=== PATIENT | male | born 1980 | race Caucasian/White ===

== ENCOUNTER → 2016-09-07 | Outpatient (CLI) | payer BC, OTHER ==
[~2016-09-07] MED LIST: OMEP40CA2 PO; OXYC1TAB23 PO
[2016-09-07 17:31] LABS: BASO % 0.4 % (0.0-1.0); EOS # 0.1 K/mm3 (0.0-0.50); EOS % 1.8 % (0.0-3.0); LARGE UNSTAINED CELL # 0.2 K/mm3 (0.0-0.4); LARGE UNSTAINED CELL % 2.2 % (0.0-4.0); LYMPH # 1.5 K/mm3 (1.5-4.5); LYMPH % 20.5 % (24.0-44.0); MEAN CORPUSCULAR HEMOGLOBIN 30.8 pg (27.0-33.0); MEAN CORPUSCULAR HGB CONC 33.8 g/dl (32.0-36.5); MEAN CORPUSCULAR VOLUME 91.2 fl (80.0-96.0); MONO # 0.4 K/mm3 (0.0-0.8); MONO % 4.9 % (0.0-5.0); NEUTROPHILS # 5.1 K/mm3 (1.8-7.7); NEUTROPHILS % 70.2 % (36.0-66.0); PLATELET COUNT, AUTOMATED 232 k/mm3 (150-450); RED CELL DISTRIBUTION WIDTH 12.5 % (11.5-14.5); WHITE BLOOD COUNT 7.2 K/mm3 (4.0-10.0)
--- NOTE | 2016-09-07 17:55 | REP ---
Chest four views; including PA and latera views and bilateral oblique views: There are no comparisons. The lung reyes are clear. The cardiac size is normal The aries, mediastinum, and bony thorax are unremarkable. Impression: Negative four view chest. Signed by Moshe Henriquez MD 09/07/2016 05:47 P
[2016-09-07 18:19] LABS: ALBUMIN/GLOBULIN RATIO 1.29 (1.00-1.93); ALKALINE PHOSPHATASE 91 U/L (45-117); ALT/SGPT 42 U/L (12-78); ANION GAP 8 MEQ/L (8-16); AST/SGOT 40 U/L (15-37); BILIRUBIN,TOTAL 0.5 MG/DL (0.2-1.0); BLOOD UREA NITROGEN 26 MG/DL (7-18); CALCIUM LEVEL 9.2 MG/DL (8.5-10.1); CARBON DIOXIDE LEVEL 29 MEQ/L (21-32); CHLORIDE LEVEL 103 MEQ/L (98-107); CREATININE FOR GFR 1.06 MG/DL (0.70-1.30); GLOMERULAR FILTRATION RATE > 60.0 (>60); GLUCOSE, FASTING 78 MG/DL (70-105); POTASSIUM SERUM 4.3 MEQ/L (3.5-5.1); SODIUM LEVEL 140 MEQ/L (136-145); TOTAL PROTEIN 7.1 GM/DL (6.4-8.2)
--- NOTE | 2016-09-08 20:30 | ECGEPIP ---
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
== END ==
LOC: M LAB 16:16
PROVIDERS: ATTEND Neurological Surgery
DX: Z01.818 Encounter for other preprocedural examination (principal); M54.5 Low back pain; M51.16 Intervertebral disc disorders with radiculopathy, lumbar region

== ENCOUNTER 2016-09-08 12:20 | Day surgery (SDC) | payer BC, OTHER ==
[~2016-09-08] VITALS: Ht 172.7 cm; Wt 84.0 kg
[2016-09-08] MEDS ORDERED: BACITRACIN PWD 50,000 UNITS VIAL As Ordered ONE (12:21)
[2016-09-08] MEDS ORDERED: THROMBIN SOLN 20,000 UNITS KIT As Ordered ONE (12:21)
[2016-09-08] MEDS ORDERED: dexameTHASONE 4 MG/ML 1ML VIAL (J1100) IV ONE (12:30)
[2016-09-08] MEDS ORDERED: CEFUROXIME SODIUM 1.5 GM in D5W MINI-BAG PLUS 50 ML IV ONE (12:30)
[2016-09-08] MEDS ORDERED: OMEP40CA2 PO (12:37)
[2016-09-08] MEDS ORDERED: dexameTHASONE 4 MG/ML 1ML VIAL (J1100) As Ordered ONE (14:15)
[2016-09-08] MEDS ORDERED: MIDAZOLAM INJ 2 MG/2 ML VIAL (J2250) As Ordered ONE (14:15)
[2016-09-08] MEDS ORDERED: fentaNYL 250 MCG/5 ML INJECTION (J3010) As Ordered ONE (14:15)
[2016-09-08] MEDS ORDERED: ROCURONIUM BROMIDE 50 MG/5 ML VIAL As Ordered ONE (14:15)
[2016-09-08] MEDS ORDERED: DESFLURANE 240 ML INHALANT As Ordered ONE (14:15)
[2016-09-08] MEDS ORDERED: METOCLOPRAMIDE INJ 10MG/2ML VIAL (J2765) As Ordered ONE (14:15)
[2016-09-08] MEDS ORDERED: ONDANSETRON 4MG/2ML VIAL (J2405) As Ordered ONE (14:15)
[2016-09-08] MEDS ORDERED: PROPOFOL 200 MG/20 ML VIAL As Ordered ONE (14:15)
[2016-09-08] MEDS ORDERED: GLYCOPYRROLATE INJ 0.2 MG/ML 2 ML VIAL As Ordered ONE (14:16)
[2016-09-08] MEDS ORDERED: NEOSTIGMINE 1MG/ML 5 ML SYRINGE (J2710) As Ordered ONE (14:16)
[2016-09-08] MEDS ORDERED: LIDOCAINE 2% INJ 100 MG/5 ML SDV (FOR ANES.) As Ordered ONE (14:16)
--- NOTE | 2016-09-08 15:37 | REP ---
PARTIAL LUMBAR SPINE, ONE VIEW: A single portable lateral radiograph was obtained. A metal probe is present overlying the neural arch at the L5-S1 level. Signed by Monico Paulson MD 09/08/2016 04:59 P
[2016-09-08] MEDS ORDERED: MORPHINE PCA 1MG/ML 100ML CADD As Ordered ONE (15:39)
[2016-09-08] MEDS ORDERED: PERCOCET 5MG/325MG TAB As Ordered ONE (15:40)
[2016-09-08] MEDS: PERCOCET 5MG/325MG TAB PO PRN ×2 (15:43→16:03)
[2016-09-08] MEDS ORDERED: NORCO, ANEXSIA 5/325MG TABLET (HYDROcodone/ACETAMINOPHEN) PO PRN (16:00)
[2016-09-08] MEDS ORDERED: fentaNYL 100 MCG/2 ML INJECTION (J3010) IV PRN (16:00)
[2016-09-08] MEDS ORDERED: NALOXONE INJ 0.4 MG/1 ML VIAL (J2310) IV PRN (16:00)
[2016-09-08] MEDS ORDERED: EPIDURAL/PCA KEYS XX PRN (16:00)
[2016-09-08] MEDS ORDERED: ONDANSETRON 4MG/2ML VIAL (J2405) IV PRN ×2 (16:00)
[2016-09-08] MEDS ORDERED: LR 1,000 ML IV SCH (16:00)
[2016-09-08] MEDS ORDERED: MORPHINE PCA 1MG/ML 100ML CADD IV PRN (16:00)
[2016-09-08] MEDS ORDERED: diphenhydrAMINE INJ 50MG/ML VIAL (J1200) IV PRN (16:00)
[2016-09-08] MEDS: KCL 20MEQ IN D5/0.45NS 1000ML 1,000 ML IV SCH (16:00)
[2016-09-08] MEDS ORDERED: ACETAMINOPHEN TAB 650MG DOSE (2X325MG) PO PRN (16:00)
[2016-09-08 16:45] VITALS: BP 112/49
[2016-09-08 17:15] VITALS: BP 120/60
[2016-09-08 18:15] VITALS: BP 114/53
[2016-09-08 19:15] VITALS: BP 114/55
[2016-09-08 20:15] VITALS: BP 116/60
[2016-09-08 22:00] VITALS: BP 114/56
[2016-09-09 02:00] VITALS: BP 112/53
[2016-09-09] MEDS: KCL 20MEQ IN D5/0.45NS 1000ML 1,000 ML IV SCH (02:00)
[2016-09-09 06:00] VITALS: BP 108/52
--- NOTE | 2016-09-09 06:40 | RO ---
DATE OF PROCEDURE: 09/08/2016 PREOPERATIVE DIAGNOSIS: Left S1 radiculopathy secondary to central L5-S1 disc herniation. POSTOPERATIVE DIAGNOSIS: Left S1 radiculopathy secondary to central L5-S1 disc herniation. PROCEDURE: Left L5-S1 laminectomy, discectomy. SURGEON: Jamal Park MD WHISTLE PUNK: ANESTHESIA: General endotracheal. CLINICAL NOTE: Patient is a 36-year-old male who was seen in the office with history of chronic low back pain with worsening over the previous couple of weeks following lifting heavy weights. An outpatient MRI was ordered, which compared to a previous study showed a large increase in the size of a know disc herniation at L5-S1. Patient was seen yesterday in followup and reported that he was much worse than when see previously. He had great difficulty just standing to walk and appeared to be in severe pain. Because of the severity of progressive worsening of his symptoms and appearance of the large disc herniation on a repeat MRI, it was decided to proceed with laminectomy and discectomy on an urgent basis. DESCRIPTION OF PROCEDURE: After satisfactory general endotracheal anesthesia established, the patient was positioned prone on the laminectomy frame. All pressure points carefully padded. Lumbosacral region thoroughly prepped, draped in a sterile fashion. A midline incision made from just above the spinous process of L5 to below spinous process of S1 and carried down to level of the fascia. Hemostasis obtained, and the lumbar fascia incised just to the left of midline and the paraspinal muscles dissected laterally. The L5-S1 level positively identified by palpation, inspection, compression and articulation. A probe was placed beneath what appeared to be the left L5 naomi lamina and a lateral lumbar x-ray obtained confirming that the probe was over the L5-S1 disc level. Ligamentum flavum was dissected from the undersurface of the left L5 naomi lamina and then using a high speed air drill, the inferior half of the left L5 lamina was thinned down and bony removal completed with 3 and 4 mm Kerrison rongeurs. The ligamentum flavum was mobilized from the dura and removed with 4 mm Kerrison rongeurs. The dura identified and gentle cottonoid dissection carried around the left lateral aspect of the dura until the exiting S1 nerve root was found to be tethered and non-mobile due to an underlying and medially placed presumed disc herniation. The nerve root and lateral edge of the dura did not allow any significant retraction medially due to the underlying mass. Therefore, dissection was undertaken in the axilla of the left S1 nerve root. Several small epidural vessels were coagulated and divided. dissection with small cottonoid and blunt nerve hook disclosed the presence of disc fragments medially and ventrally. This was gradually mobilized with a blunt nerve hook and small pituitary rongeurs. A single large piece free fragment herniation was retrieved and found to have attached cartilaginous endplate. This was removed. There was immediate relaxation of the dura and S1 nerve root and further inspection in the axilla dissection with a small blunt nerve hook disclosed the presence of a second smaller disc fragment, which also had attached cartilaginous endplate. Once this was removed, further inspection under magnification vision and probing with a small blunt nerve hook revealed no further evidence, just fragments. The lateral edge of the dura and the S1 nerve root were both freely mobile. The defect in the annulus was located and found to be located essentially at the midline. It did not easily allow further exploration into the disc space itself and I did not think it prudent to enlarge the opening in the annulus since the amount of disc material that had been retrieved well accounted for the fragment that was seen on the MRI scan. Accordingly, the laminectomy frame was lowered. The epidural space and wound were copiously irrigated with antibiotic solution. Meticulous hemostasis obtained with bipolar cautery and pledgets of Gelfoam. The epidural space, nerve root and lateral dura again inspected without encountering any further evidence of nerve root compromise or disc herniations. Blunt probe passed distally along the S1 nerve root without encountering any resistance. The wound was then closed using #0 Vicryl for the muscle and fascia closure, #3-0 Vicryl used for subcutaneous closure and skin edges approximated with Dermabond. The patient was then taken to the recovery room and found to moving all four extremities well to command, having tolerated the procedure well.
[2016-09-09] MEDS ORDERED: OXYC1TAB23 PO (10:59)
[2016-09-09 11:35] VITALS: BP 138/79
== END 2016-09-09 11:30 | disposition home or self-care (01) ==
LOC: M SDC 12:20 → M MS5PR 15:25 → M SDC 15:27
PROVIDERS: ATTEND Neurological Surgery
DX: M51.27 Other intervertebral disc displacement, lumbosacral region (principal); M79.605 Pain in left leg; F12.90 Cannabis use, unspecified, uncomplicated; Z88.5 Allergy status to narcotic agent; Z79.899 Other long term (current) drug therapy